=== PATIENT | female | born 1980 | race Caucasian/White ===

== ENCOUNTER → 2021-10-04 15:43 | Outpatient (CLI) | payer OTHER, SELFPAY ==
[2021-10-04 20:33] LABS: Barbiturates Screen,Urine Negative ng/ml (<200)
[2021-10-04 20:34] LABS: Amphetamine/Metha Screen,Urine Negative ng/ml (<1000); Benzodiazepines Screen,Urine Positive ng/ml (<200)
[2021-10-04 20:35] LABS: Cannabinoid Screen,Urine Positive ng/ml (<50); Cocaine Screen,Urine Negative ng/ml (<300)
[2021-10-04 20:36] LABS: Methadone Screen,Urine Negative ng/ml (<300)
[2021-10-04 20:37] LABS: Opiate Screen,Urine Negative ng/ml (<300); Phencyclidine Screen,Urine Negative ng/ml (<25)
== END ==
PROVIDERS: Visit Provider Emergency Medicine
DX: Z79.899 Other long term (current) drug therapy (principal)
CPT/HCPCS: 80305

== ENCOUNTER → 2021-11-09 12:06 | Outpatient (CLI) | payer OTHER, SELFPAY | LOC: LAB.CARL 12:07 → LAB 12:12 | PROVIDERS: PCP Emergency Medicine; Visit Provider Internal Medicine Gastroenterology | DX: Z01.818 Encounter for other preprocedural examination (principal); Z20.822 Contact with and (suspected) exposure to COVID-19 | CPT/HCPCS: C9803; U0003; U0005 ==

== ENCOUNTER → 2022-03-29 13:18 | Outpatient (CLI) | payer OTHER, SELFPAY ==
[2022-03-29 19:17] LABS: Amphetamine/Metha Screen,Urine Negative ng/ml (<1000)
[2022-03-29 19:18] LABS: Barbiturates Screen,Urine Negative ng/ml (<200); Benzodiazepines Screen,Urine Positive ng/ml (<200)
[2022-03-29 19:19] LABS: Cannabinoid Screen,Urine Positive ng/ml (<50)
[2022-03-29 19:20] LABS: Cocaine Screen,Urine Negative ng/ml (<300); Methadone Screen,Urine Negative ng/ml (<300)
[2022-03-29 19:21] LABS: Opiate Screen,Urine Negative ng/ml (<300); Phencyclidine Screen,Urine Negative ng/ml (<25)
== END ==
PROVIDERS: PCP Emergency Medicine; Visit Provider Emergency Medicine
DX: F41.9 Anxiety disorder, unspecified (principal)
CPT/HCPCS: 80305

== ENCOUNTER 2022-07-25 09:26 | Day surgery (SDC) | payer OTHER, SELFPAY ==
[2022-07-21 15:01] VITALS: BMI 23.8
--- NOTE | 2022-07-25 10:06 | SUR.PREOP ---
pt administered fleets enemas x2
[2022-07-25 10:18] VITALS: BP 123/78; PULSE 93; RESP 18; TEMP 37.1; O2SAT 100
--- NOTE | 2022-07-25 10:32 | P.PN_ITS ---
[facility] Disclaimer: The information contained in this section may have been updated after the patient was seen, as this information can be updated by other users. Medical History (Updated 07/25/22 @ 10:09 by Glenys Meza RN) Allergies Asthma Constipation Diarrhea Surgical History (Updated 07/25/22 @ 10:12 by Glenys Meza RN) History of breast biopsy History of section History of endometrial ablation Family History (Updated 07/25/22 @ 10:15 by Glenys Meza RN) Other Family history of cancer Family history of diabetes mellitus type II Family history of hypothyroidism Family history of stroke Social History (Updated 07/25/22 @ 10:15 by Glenys Meza RN) Smoking Status: Former smoker quit date: 04/14/22 second hand exposure: Yes alcohol intake: never substance use type: marijuana current occupational status: employed Travel in the last 8 weeks: None household members: spouse and children housing: house marital status: education level: high school current occupation: [employer] current occupational exposures/hazards: No caffeine: Yes special ofelia needs: No agree to transfusion: No do you feel safe at home: Yes victim of physical abuse: No victim of emotional abuse: No victim of sexual abuse: No would you like helpful sources: No [facility] Anesthesia Checklist Patient Identification Patient Identification: Arm Band Structural Data Admitted From: Home Planned Operative Procedure/s: colonoscopy Consent for Planned Operative Procedure(s) Verified: Yes Verified Documents: Surgical Consent and History and Physical NPO Status Verified Time NPO: 00:00 Additional verifications Anesthesia Reactions: No Airway Assessment C-Spine Mobility Assessed: Yes TMJ Mobility Assessed: Yes Dentition: Good Dentition Neurological Assessment Level of Consciousness: Awake and Alert Anesthesia Plan Anesthesia Risk discussed: Yes Anesthesia Plan: Verified ASA Class: II Anesthesia Type: MAC
[2022-07-25 10:47] LABS: HCG Qualitative, Serum Negative (Negative)
[2022-07-25 10:51] VITALS: O2SAT 100
[2022-07-25 11:36] VITALS: BP 123/75; PULSE 97; RESP 16; TEMP 36.2; O2SAT 99
--- NOTE | 2022-07-25 11:37 | HMH.SCOPE ---
Procedure: Date: 07/25/22 Patient Date of :: 1980 Procedure Performed:: Colonoscopy with polypectomy Indications:: History of colon polyps Irritable bowel with alternating constipation and diarrhea Performing Provider:: Robert Bhatti MD Referring Provider:: Dr. Smith Sedation:: Monitored anesthesia care Procedure:: After informed consent was obtained the patient was taken to the endoscopy suite. Sedation ensued after the patient was transferred to the left lateral decubitus position. Pulse, blood pressure, and oxygen saturation were monitored throughout the procedure. Digital rectal exam revealed no significant abnormality. The colonoscope was placed in position. The entire colon was evaluated. The colonoscope was carefully removed and the patient was transferred to recovery in stable condition. Please see findings and specimens below for detail. Findings:: Bowel preparation fair to moderate's Moderate spasticity/lack of relaxation Sigmoid tortuosity Hemorrhoidal tags Polyps (see specimens) Specimens:: Cecal polyp (cold biopsy forceps) Polyp at 25 cm (cold snare) Recommendations:: Timing of repeat colonoscopy is pending pathology but will likely be around 2-3 years secondary to history of polyps diagnosed at a young age, spasticity/lack of relaxation, and tortuosity (once the patient has been evaluated by gastroenterology service a shorter-term repeat colonoscopy may be warranted) Consideration of gastroenterology consultation will be discussed with the patient secondary to her history of irritable bowel syndrome with alternating diarrhea and constipation. Complications:: No immediate Estimated blood obtained (mL): 1
[2022-07-25 11:45] VITALS: BP 132/94; PULSE 92; RESP 16; O2SAT 99
[2022-07-25 11:55] VITALS: BP 124/84; PULSE 83; RESP 16; O2SAT 99
[2022-07-25 12:10] VITALS: BP 132/65; PULSE 82; RESP 17; O2SAT 98
== END 2022-07-25 12:11 | disposition home or self-care (01) ==
PROVIDERS: PCP Emergency Medicine; Visit Provider Surgery
PROC: 0DJD8ZZ Inspection of Lower Intestinal Tract, Via Natural or Artificial Opening Endoscopic (ICD-10-PCS; CPT 45380; principal; 2022-07-25 11:30)
DX: K59.00 Constipation, unspecified (principal); R19.7 Diarrhea, unspecified; Z86.010 Personal history of colon polyps; D12.0 Benign neoplasm of cecum; D12.5 Benign neoplasm of sigmoid colon; Z79.899 Other long term (current) drug therapy
CPT/HCPCS: 45380; 45385; 84703; J2704

== ENCOUNTER → 2022-09-20 23:14 | Outpatient (CLI) | payer OTHER, SELFPAY ==
[2022-09-20 19:54] LABS: Amphetamine/Metha Screen,Urine Negative ng/ml (<1000)
[2022-09-20 19:55] LABS: Barbiturates Screen,Urine Negative ng/ml (<200); Benzodiazepines Screen,Urine Positive ng/ml (<200)
[2022-09-20 19:56] LABS: Cocaine Screen,Urine Negative ng/ml (<300)
[2022-09-20 19:57] LABS: Cannabinoid Screen,Urine Positive ng/ml (<50); Methadone Screen,Urine Negative ng/ml (<300)
[2022-09-20 19:58] LABS: Opiate Screen,Urine Negative ng/ml (<300)
[2022-09-20 20:02] LABS: Phencyclidine Screen,Urine Negative ng/ml (<25)
== END ==
PROVIDERS: PCP Emergency Medicine; Visit Provider Emergency Medicine
DX: F41.9 Anxiety disorder, unspecified (principal)
CPT/HCPCS: 80305

== ENCOUNTER → 2022-12-13 11:00 | Outpatient (CLI) | payer OTHER, SELFPAY ==
[2022-12-13 18:57] LABS: Basophils # 0.1 K/mm3 (0-0.2); Basophils % 0.8 % (0.1-2.0); Eosinophils # 0.5 K/mm3 (0.0-0.4); Hematocrit 42.3 % (37.0-47.0); Hemoglobin 13.7 g/dL (12.2-16.2); Lymphocytes # 2.7 K/mm3 (0.7-4.5); Lymphocytes % 29.6 % (10-50); Mean Corpuscular HGB Conc 32.3 g/dL (31.8-35.4); Mean Corpuscular Hemoglobin 29.9 pg (27.0-31.2); Mean Corpuscular Volume 92.7 fl (81-99); Mean Platelet Volume 8.7 fl (7.4-10.4); Monocytes # 0.5 K/mm3 (0.1-1.0); Monocytes % 4.9 % (1.7-9.3); Neutrophils # 5.4 K/mm3 (1.8-7.8); Neutrophils % 59.7 % (37.0-80.0); Platelet Count 268 K/mm3 (142-424); Red Blood Count 4.57 M/mm3 (4.20-5.40); Red Cell Distribution Width 12.9 % (11.5-17.5); White Blood Count 9.1 K/mm3 (4.8-10.8)
[2022-12-13 19:15] LABS: Alanine Aminotransferase 16 U/L (12-78); Albumin Level 4.5 g/dl (3.5-5.0); Albumin/Globulin Ratio 1.6 (1.1-1.8); Alkaline Phosphatase 66 U/L (38-126); Anion Gap 9.3 mEq/L (5-15); Aspartate Amino Transferase 26 U/L (14-36); Bilirubin,Total 0.4 mg/dl (0.2-1.3); Blood Urea Nitrogen 6 mg/dl (7-17); Calcium 9.3 mg/dl (8.4-10.2); Carbon Dioxide 28 mmol/L (22.0-30.0); Chloride 106 mmol/L (98-107); Chol/HDL Ratio 3.5 (1-3.5); Cholesterol 235 mg/dl (140-200); Estimated Glomerular Filt Rate 92 ml/min (>60); GFR (African American) 112 ML/MIN (>60); Globulin 2.8 g/dL (1.3-3.2); Glucose 71 mg/dl (74-100); HDL Cholesterol 67 mg/dl (40-60); Potassium 4.3 mmoL/L (3.5-5.1); Sodium 139 mmol/L (136-145); Total Protein,Serum 7.3 g/dl (6.3-8.2); Triglycerides 105 mg/dl (30-150); VLDL Cholesterol 21 mg/dL (0-40)
[2022-12-13 19:32] LABS: Direct LDL Cholesterol 128.97 mg/dL (100-129)
[2022-12-13 19:34] LABS: T4 (Thyroxine) 7.1 ug/dl (5.53-11.0)
[2022-12-13 19:40] LABS: 25-OH Vitamin D, Total 39.1 ng/mL (30-100)
[2022-12-13 19:45] LABS: Amphetamine/Metha Screen,Urine Negative ng/ml (<1000)
[2022-12-13 19:46] LABS: Barbiturates Screen,Urine Negative ng/ml (<200); Benzodiazepines Screen,Urine Positive ng/ml (<200)
[2022-12-13 19:47] LABS: Cannabinoid Screen,Urine Positive ng/ml (<50)
[2022-12-13 19:47] LABS: Thyroid Stimulating Hormone 0.61 uIU/mL (0.465-4.68)
[2022-12-13 19:48] LABS: Cocaine Screen,Urine Negative ng/ml (<300); Methadone Screen,Urine Negative ng/ml (<300)
[2022-12-13 19:50] LABS: Opiate Screen,Urine Negative ng/ml (<300)
[2022-12-13 19:51] LABS: Phencyclidine Screen,Urine Negative ng/ml (<25)
[2022-12-13 20:16] LABS: Iron 86 ug/dL (37-170)
[2022-12-13 20:33] LABS: Total Iron Binding Capacity 397 ug/dL (265-497)
== END ==
PROVIDERS: PCP Emergency Medicine; Visit Provider Emergency Medicine
DX: F41.9 Anxiety disorder, unspecified (principal); R53.83 Other fatigue; Z79.899 Other long term (current) drug therapy
CPT/HCPCS: 80053; 80061; 80305; 82306; 83540; 83550; 84436; 84443; 85025

== ENCOUNTER → 2023-03-12 12:24 | Outpatient (CLI) | payer OTHER, SELFPAY ==
[2023-03-12 21:41] LABS: Barbiturates Screen,Urine Negative ng/ml (<200); Benzodiazepines Screen,Urine Positive ng/ml (<200)
[2023-03-12 21:42] LABS: Amphetamine/Metha Screen,Urine Negative ng/ml (<1000); Cannabinoid Screen,Urine Positive ng/ml (<50)
[2023-03-12 21:43] LABS: Cocaine Screen,Urine Negative ng/ml (<300)
[2023-03-12 21:44] LABS: Methadone Screen,Urine Negative ng/ml (<300); Opiate Screen,Urine Negative ng/ml (<300)
[2023-03-12 21:45] LABS: Phencyclidine Screen,Urine Negative ng/ml (<25)
== END ==
PROVIDERS: PCP Emergency Medicine; Visit Provider Emergency Medicine
DX: F41.9 Anxiety disorder, unspecified (principal)
CPT/HCPCS: 80305

== ENCOUNTER → 2023-05-02 15:32 | Outpatient (CLI) | payer OTHER, SELFPAY | PROVIDERS: PCP Physician Assistant; Visit Provider Obstetrics & Gynecology | DX: N93.8 Other specified abnormal uterine and vaginal bleeding (principal) ==

== ENCOUNTER 2023-06-06 07:18 | Outpatient (CLI) | payer OTHER, SELFPAY ==
[2023-06-06 23:23] LABS: Barbiturates Screen,Urine Negative ng/ml (<200); Benzodiazepines Screen,Urine Positive ng/ml (<200); Methadone Screen,Urine Negative ng/ml (<300)
[2023-06-06 23:58] LABS: Amphetamine/Metha Screen,Urine Negative ng/ml (<1000)
[2023-06-07] LABS: Cannabinoid Screen,Urine Positive ng/ml (<50)
[2023-06-07 00:03] LABS: Opiate Screen,Urine Negative ng/ml (<300); Phencyclidine Screen,Urine Negative ng/ml (<25)
[2023-06-07 00:04] LABS: Cocaine Screen,Urine Negative ng/ml (<300)
== END 2023-06-06 23:59 ==
LOC: LAB.DROPOF 06-07 07:18
PROVIDERS: PCP Physician Assistant; Visit Provider Family Medicine
DX: Z79.899 Other long term (current) drug therapy (principal)
CPT/HCPCS: 80307

== ENCOUNTER 2023-06-13 18:30 | Outpatient (CLI) | payer OTHER, SELFPAY ==
[2023-06-13 20:38] LABS: Barbiturates Screen,Urine Negative ng/ml (<200); Benzodiazepines Screen,Urine Positive ng/ml (<200); Cannabinoid Screen,Urine Positive ng/ml (<50); Methadone Screen,Urine Negative ng/ml (<300); Phencyclidine Screen,Urine Negative ng/ml (<25)
[2023-06-13 20:45] LABS: Cocaine Screen,Urine Negative ng/ml (<300); Opiate Screen,Urine Negative ng/ml (<300)
[2023-06-13 20:47] LABS: Amphetamine/Metha Screen,Urine Negative ng/ml (<1000)
== END 2023-06-13 23:59 ==
LOC: LAB.DROPOF 18:30
PROVIDERS: PCP Nurse Practitioner Acute Care; Visit Provider Nurse Practitioner Acute Care
DX: F41.9 Anxiety disorder, unspecified (principal)
CPT/HCPCS: 80307

== ENCOUNTER 2024-04-28 14:55 | Outpatient (CLI) | payer OTHER, SELFPAY ==
--- NOTE | 2024-04-28 14:55 | US_ITS ---
PROCEDURE: US TRANSVAGINAL CLINICAL INDICATION: secondary to abnormal bleeding COMPARISON: No exams were available for comparison FINDINGS: Transvaginal sonographic images of the pelvis were obtained. UTERUS: 8.3cm x 5.1cmx 4.3cm anteverted with a combined endometrial thickness of 7.9mm. The endometrium appears homogeneous. The basalis of the endometrium appears irregular due to possible adenomyosis. There is a scar in the lower uterine segment. The myometrium is heterogenous. There are multiple nabothian cysts in the cervix. The largest measures 0.9 cm. There is a posterior fibroid measuring 2.0 cm x 1.0 cm by 1.9 cm. LEFT OVARY: 4.9 cmx2.9 cmx2.5cm with a volume of 18.7ml. There is a hemorrhagic cyst in the left ovary measuring 2.8 cm x 2.6 cm x 1.9 cm There is a 2nd follicle measuring 2.4 cm There are several other smaller follicles. RIGHT OVARY: 2.9 cmx 3.0cmx1.7 cm with a volume of 7.6ml. There is a single follicle measuring 1.0 cm. Both ovaries are seen and appear normal. Doppler flow to both ovaries are seen. There is no fluid in the cul-de-sac. IMPRESSION: 1. Anteverted uterus normal in shape and size. The endometrium appears homogeneous. The basalis of the endometrium is irregular possibly consistent with adenomyosis. 2. There is a posterior fibroid measuring 2.0 cm. 3. The left ovary is larger than the right ovary and contains a hemorrhagic cyst measuring 2.8 cm. There is a 2nd follicle measuring 2.4 cm. 4. The right ovary has a single small follicle measuring 1 cm. 5. No fluid in the cul-de-sac. Dictated by: Sd Hendrix MD 04/28/2024 16:40 Sd Hendrix MD in OV 04/28/2024 16:40
== END 2024-04-28 23:59 | disposition home or self-care (01) ==
LOC: RAD 14:55
PROVIDERS: PCP Family Medicine; Visit Provider Obstetrics & Gynecology
DX: N93.8 Other specified abnormal uterine and vaginal bleeding (principal)
CPT/HCPCS: 76830